=== PATIENT | male | born 1975 | race Caucasian/White ===

== ENCOUNTER 2021-08-07 12:33 | Emergency (ER) | payer OTHER ==
[~2021-08-07] VITALS: Ht 195.6 cm; Wt 104.1 kg
[2021-08-07 12:56] VITALS: BP 125/83
--- NOTE | 2021-08-07 13:04 | PHYS DOC ---
General Adult EDM: Chief Complaint: RIB PAIN HPI: HPI: Patient is a 46-year-old male being seen in the ER for right posterior rib pain. Patient states that he stepped in a hole while yesterday morning and he landed on a stump. Patient denies any shortness of breath or fevers. (EDUARDO TAVARES APRN) Review of Systems: Review of Systems: 14 body systems of the review of systems have been reviewed. See HPI for pertinent positive and negative responses, otherwise all other systems are negative, nonpertinent or noncontributory (EDUARDO TAVARES APRN) Physical Exam: PE: Constitutional: Well developed, well nourished, no acute distress, non-toxic appearance. [] HENT: Normocephalic, atraumatic Eyes: PERRL, EOMI, conjunctiva normal, no discharge. [] Neck: Normal range of motion, no tenderness, supple, no stridor. [] Cardiovascular:Heart rate regular rhythm, no murmur [] Lungs & Thorax: Bilateral breath sounds clear to auscultation, ecchymosis noted to right posterior mid rib, pain with palpation to same region, no flail chest, no crepitus, no obvious deformity [] Abdomen: Bowel sounds normal, soft, no tenderness, no masses, no pulsatile masses. [] Skin: Warm, dry, no erythema, no rash. [] Back: Normal range of motion, no tenderness Extremities: No tenderness, no cyanosis, no clubbing, ROM intact, no edema. [] Neurologic: Alert and oriented X 3, normal motor function, normal sensory function, no focal deficits noted. [] Psychologic: Affect normal, judgement normal, mood normal. [] (EDUARDO TAVARES APRN) EKG: EKG: [] (EDUARDO TAVARES APRN) Radiology/Procedures: Radiology/Procedures: REASON: POSTERIOR RIGHT RIB PAIN APPROX 8TH-9TH PROCEDURE: RIBS RIGHT XR RIBS 2 VIEWS RT History: Posterior right rib pain, approximately eighth and ninth. Comparison: None. Technique: 4 views the right ribs. Findings: There is a minimally displaced fracture of the right posterior lateral ninth rib. No pleural effusion or pneumothorax. Lungs clear. Impression: 1. Minimally displaced fracture of the right posterior lateral ninth rib. Electronically signed by: Efren Dobbins MD (08/07/2021 1:29 PM) [id number] DICTATED AND SIGNED BY: EFREN DOBBINS MD DATE: 08/07/21 1327 CC: EDUARDO TAVARES APRN; PCP,UNKNOWN ~MTH0 0 (EDUARDO TAVARES APRN) Heart Score: C/O Chest Pain: No Risk Factors: Risk Factors: DM, Current or recent (<one month) smoker, HTN, HLP, family history of CAD, obesity. Risk Scores: Score 0 - 3: 2.5% MACE over next 6 weeks - Discharge Home Score 4 - 6: 20.3% MACE over next 6 weeks - Admit for Clinical Observation Score 7 - 10: 72.7% MACE over next 6 weeks - Early Invasive Strategies (EDUARDO TAVARES APRN) Course & Med Decision Making: Course & Med Decision Making Pertinent Labs and Imaging studies reviewed. (See chart for details) [] Patient is a 46-year-old male being seen in the ER for right posterior rib pain after he fell into a hole and landed onto his stomach. Patient drove himself to the ER today. An x-ray was performed of his right ribs and it showed normally displaced right posterior rib fracture of the ninth rib. Patient's vital signs are stable and he is in no acute distress. He denies any shortness of breath. Patient will be given an incentive spirometer. He will also be discharged home with pain medication. Patient advised to follow-up with his primary care provider. I discussed with patient all findings and diagnostic testing as well as the need to follow-up with PCP for further evaluation and treatment or return to the ER if any new or worsening symptoms. Strict return precautions were also discussed at length. Patient voiced understanding and ag reement with the plan. Patient is hemodynamically stable at the time of disposition. (EDUARDO TAVARES APRN) Course & Med Decision Making I was the Attending physician on the above date of service of this patient. This patient was evaluated, examined, treated, and dispositioned from the emergency department by the mid-level practitioner. Although I was working at the time , no assistance was requested. Electronically signed, Avinash Collins DO (AVINASH COLLINS DO) Brittnee Disclaimer: Brittnee Disclaimer: This electronic medical record was generated, in whole or in part, using a voice recognition dictation system. (EDUARDO TAVARES APRN) Departure Departure: Impression: Primary Impression: Rib fracture Qualified Codes: S22.31XA - Fracture of one rib, right side, initial encounter for closed fracture Disposition: HOME / SELF CARE / HOMELESS Condition: GOOD Referrals: PCP,UNKNOWN (PCP) Patient Instructions: Rib Fracture Additional Instructions: You were seen in the ER today for rib pain. You were noted to have a rib fracture of your ninth rib on the right side. You were given an incentive spirometer and education. Please ensure that you are using this as directed to prevent a pneumonia. You can take ibuprofen for any mild pain. For severe pain you are being discharged home with the pain medication. This medication contains hydrocodone and it may make you drowsy. Do not take need to be alert and do not take with any alcohol. Follow-up with your primary care provider tomorrow regarding your ER visit. If you develop worsening of your pain, shortness of breath, chest pain, coughing up blood, high fevers refractory to treatment or any new or worsening concerns please return to the ER. EMERGENCY DEPARTMENT GENERAL DISCHARGE INSTRUCTIONS Thank you for coming to [facility] (ED) today and trusting us with you care. We trust that you had a positivie experience in our Emergency Department. If you wish to speak to the department management, you may call the director at [phone]. YOUR FOLLOW UP INSTRUCTIONS ARE FOLLOWS: 1. Do you have a private Doctor? If you do not have a private doctor, please ask for a resource list of physicians or clinics that may be able to assist you with follow up care. 2. The Emergency Physician has interpreted your x-rays. The X-Ray specialist will also review them. If there is a change in the findings, you will be notified in 48 hours when at all possible. 3. A lab test or culture has been done, your results will be reviewed and you will be notified if you need a change in treatment. ADDITIONAL INSTRUCTIONS AND INFORMATION: 1. Your care today has been supervised by a physician who is specially trained in emergency care. Many problems require more than one evaluation for a complete diagnosis and treatment. We recommend that you schedule your follow up appointment as recommended to ensure complete treatment of you illness or injury. If you are unable to obtain follow up care and continue to have a problem, or if your condition worsens, we recommend that you return to the ED. 2. We are not able to safely determine your condition over the phone nor are we able to give sound medical advice over the phone. For these safety reasons, if you call for medical advice we will ask you to come to the ED for further evaluation. 3. If you have any questions regarding these discharge instructions please call the ED at [phone]. SAFETY INFORMATION: In the interest of safety, wellness, and injury prevention; we encourage you to wear your sealbelt, if you smoke; quite smoking, and we encourage family to use a protective helmet for bicycling and other sporting events that present an increased risk for head injury. IF YOUR SYMPTOMS WORSEN OR NEW SYMPTOMS DEVELOP, OR YOU HAVE CONCERNS ABOUT YOUR CONDITION; OR IF YOUR CONDITION WORSENS WHILE YOU ARE WAITING FOR YOUR FOLLOW UP APPO INTMENT; EITHER CONTACT YOUR PRIMARY CARE DOCTOR, THE PHYSICIAN WHOSE NAME AND NUMBER YOU WERE GIVEN, OR RETURN TO THE ED IMMEDIATELY. Scripts Hydrocodone Bit/Acetaminophen (HYDROCODONE-APAP 5-325 ) 1 Each Tablet 1 TAB PO PRN Q6HRS PRN for PAIN for 3 Days, #12 TAB 0 Refills Prov: EDUARDO TAVARES APRN 08/07/21 EDUARDO TAVARES APRN Aug 07, 2021 13:04 AVINASH COLLINS DO Aug 08, 2021 06:53
--- NOTE | 2021-08-07 13:31 | RAD ---
XR RIBS 2 VIEWS RT History: Posterior right rib pain, approximately eighth and ninth. Comparison: None. Technique: 4 views the right ribs. Findings: There is a minimally displaced fracture of the right posterior lateral ninth rib. No pleural effusion or pneumothorax. Lungs clear. Impression: 1. Minimally displaced fracture of the right posterior lateral ninth rib. Electronically signed by: Efren Lira MD (08/07/2021 1:29 PM) [id number]
[2021-08-07] MEDS ORDERED: HYDR-2155 PO (13:57)
== END 2021-08-07 15:10 | disposition home or self-care (01) ==
LOC: ER 12:33
DX: S22.31XA Fracture of one rib, right side, initial encounter for closed fracture (principal); W17.2XXA Fall into hole, initial encounter; Y93.89 Activity, other specified; Y92.89 Other specified places as the place of occurrence of the external cause; Y99.8 Other external cause status
CPT/HCPCS: 71100; 99283; G0238